=== PATIENT | female | born 1945 | race Caucasian/White ===

== ENCOUNTER → 2018-03-07 | Outpatient (CLI) | payer MEDICARE, OTHER ==
[~2018-03-07] MED LIST: ALLERGY MEDICATION PO; CHOL10002 PO; DOCU100 PO; FOLATE PO; FOLI1 PO; METF500 PO; METTREX2.5 PO; OMEP20ER PO; VALA500 PO
== END ==
LOC: OLS 14:46 → LAB SHORT 14:46
DX: M85.80 Other specified disorders of bone density and structure, unspecified site (principal)
CPT/HCPCS: 36415; 82306

== ENCOUNTER → 2019-01-29 | Outpatient (CLI) | payer MEDICARE, OTHER ==
[2019-01-30 14:09] LABS: HPV 16 Negative (Negative); HPV 18 Negative (Negative); HPV OTHER HR TYPES Negative (Negative)
== END | disposition home or self-care (01) ==
LOC: LAB 13:28 → LAB SHORT 13:28
PROVIDERS: Obstetrics & Gynecology Gynecology
DX: Z91.89 Other specified personal risk factors, not elsewhere classified (principal)
CPT/HCPCS: 87624; G0123

== ENCOUNTER → 2019-04-01 | Outpatient (CLI) | payer MEDICARE, OTHER | END | disposition home or self-care (01) | LOC: PLD 13:31 → LAB SHORT 13:31 | DX: L81.4 Other melanin hyperpigmentation (principal) | CPT/HCPCS: 88305 ==